=== PATIENT | female | born 1950 | race Caucasian/White ===

== ENCOUNTER 2018-12-28 13:27 | Emergency (ER) | payer MEDICARE, OTHER ==
[2018-12-28] MEDS: METHYLPREDNISOLONE 40 MG INJ IM (14:53)
[2018-12-28] MEDS: IBUPROFEN 800 MG TAB PO (14:53)
== END 2018-12-28 16:53 | disposition home or self-care (01) ==
LOC: FTE 13:27
DX: J40 Bronchitis, not specified as acute or chronic (principal); I10 Essential (primary) hypertension; E03.9 Hypothyroidism, unspecified; J01.90 Acute sinusitis, unspecified; H66.002 Acute suppurative otitis media without spontaneous rupture of ear drum, left ear
CPT/HCPCS: 71046; 87400; 87880; 96372; 99284-25

== ENCOUNTER 2019-04-05 17:07 | Emergency (ER) | payer MEDICARE, OTHER | END 2019-04-05 19:26 | disposition home or self-care (01) | LOC: FTE 17:07 | DX: S05.02XA Injury of conjunctiva and corneal abrasion without foreign body, left eye, initial encounter (principal); I10 Essential (primary) hypertension; E03.9 Hypothyroidism, unspecified; X58.XXXA Exposure to other specified factors, initial encounter; Y92.9 Unspecified place or not applicable | CPT/HCPCS: 99283 ==